=== PATIENT | female | born 1985 | race Caucasian/White ===

== ENCOUNTER 2019-01-15 13:22 | Emergency (ER) | payer OTHER ==
[2019-01-15] MEDS ORDERED: ONDANSETRON HCL INJ/PF 4 MG/2 ML SDV IV ONE ×2 (14:10→18:26)
[2019-01-15] MEDS ORDERED: NORMAL SALINE 1000 ML 1,000 ML IV ONE (14:10)
[2019-01-15] MEDS ORDERED: KETOROLAC TROMETHAMINE INJ/PF 30 MG/1 ML SDV IV ONE (14:12)
--- NOTE | 2019-01-15 14:12 | ER Document Report ---
ED Medical Screen (RME) - General Chief Complaint: Upper Abdominal Pain Stated Complaint: NAUSEA,VOMITIN,DIARRHEA Time Seen by Provider: 01/15/19 14:08 Mode of Arrival: Ambulatory Information source: Patient Notes: 33-year-old female presented to ED for nausea vomiting and diarrhea for months with right upper quadrant pain for months. She states the nausea vomiting diarrhea and pain are all worse starting yesterday. She does have a history of gastric sleeve at which time mother told the surgeon if the gallbladder was bad to please take it out. He states it was okay at that time. She states she is been to the doctor several times since his nausea vomiting diarrhea and up quadrant pain started and they told her to stop drinking and take her antidepressants and it would go away. She states she does drink 2 beers a day during the week and more than that on the weekend. She uses vapor cigarettes and does not do drugs. Patient is alert oriented respirations regular and unlabored does have a very significant tenderness to the right upper quadrant. I have greeted and performed a rapid initial assessment of this patient. A comprehensive ED assessment and evaluation of the patient, analysis of test results and completion of medical decision making process will be conducted by an additional ED providers. Dictation of this chart was performed using voice recognition software; therefore, there may be some unintended grammatical errors. TRAVEL OUTSIDE OF THE [place] IN LAST 30 DAYS: No - Related Data Allergies/Adverse Reactions: No Known Allergies Allergy (Verified 01/15/19 13:25) Physical Exam - Vital signs Vitals: Temp Pulse Resp BP Pulse Ox 98.2 F 90 24 H 147/118 H 99 01/15/19 13:36 01/15/19 13:36 01/15/19 13:36 01/15/19 13:36 01/15/19 13:36 Course - Vital Signs Vital signs: Temp Pulse Resp BP Pulse Ox 98.2 F 90 24 H 147/118 H 99 01/15/19 13:36 01/15/19 13:36 01/15/19 13:36 01/15/19 13:36 01/15/19 13:36
[2019-01-15 15:10] LABS: ABSOLUTE LYMPHOCYTES (AUTO) 1.1 10^3/uL (0.5-4.7); ABSOLUTE MONOCYTES (AUTO) 0.4 10^3/uL (0.1-1.4); ABSOLUTE NEUT (AUTO) 2.7 10^3/uL (1.7-8.2); BASOPHILS % (AUTO) 1.1 % (0-2); EOSINOPHILS % (AUTO) 0.1 % (0-6); HEMATOCRIT 41.8 % (36.0-47.0); HEMOGLOBIN 14.1 g/dL (12.0-15.5); LYMPHOCYTES % (AUTO) 26.5 % (13-45); MEAN CORPUSCULAR HGB CONC 33.9 g/dL (32.0-36.0); MEAN CORPUSCULAR VOLUME 103 fl (80-97); MONOCYTES % (AUTO) 9.3 % (3-13); PLATELET COUNT 228 10^3/uL (150-450); RED BLOOD COUNT 4.04 10^6/uL (3.72-5.28); RED CELL DISTRIBUTION WIDTH 16.8 % (11.5-14.0); TOTAL CELLS COUNTED % (AUTO) 100 %; WHITE BLOOD COUNT 4.3 10^3/uL (4.0-10.5)
[2019-01-15 15:21] LABS: APPEARANCE,URINE SLIGHTLY-CLOUDY; BILIRUBIN,URINE NEGATIVE (NEGATIVE); COLOR,URINE YELLOW; GLUCOSE, URINE 50 mg/dL (NEGATIVE); KETONES,URINE NEGATIVE (NEGATIVE); LEUKOCYTE ESTERASE,URINE NEGATIVE (NEGATIVE); NITRITE,URINE NEGATIVE (NEGATIVE); PROTEIN,URINE NEGATIVE (NEGATIVE); URINE SPECIFIC GRAVITY 1.026; UROBILINOGEN,URINE NEGATIVE mg/dL (<2.0)
[2019-01-15] MEDS ORDERED: FENTANYL CITRATE INJ/PF 100 MCG/2 ML AMPUL IV ONE (15:44)
[2019-01-15 16:44] LABS: ALANINE AMINOTRANSFERASE 52 U/L (9-52); ALBUMIN 3.1 g/dL (3.5-5.0); ALKALINE PHOSPHATASE 98 U/L (38-126); ANION GAP 10 (5-19); ASPARTATE AMINO TRANSFERASE 68 U/L (14-36); BILIRUBIN,DIRECT 0.2 mg/dL (0.0-0.4); BILIRUBIN,TOTAL 0.7 mg/dL (0.2-1.3); BLOOD UREA NITROGEN 7 mg/dL (7-20); CALCIUM 7.5 mg/dL (8.4-10.2); CARBON DIOXIDE 21 mmol/L (22-30); CHLORIDE 107 mmol/L (98-107); GLUCOSE 88 mg/dL (75-110); POTASSIUM 3.7 mmol/L (3.6-5.0); SODIUM 138.4 mmol/L (137-145); TOTAL PROTEIN 5.9 g/dL (6.3-8.2)
--- NOTE | 2019-01-15 16:53 | RADIOLOGY REPORT (SQ) ---
EXAM DESCRIPTION: U/S ABDOMEN LIMITED W/O DOP COMPLETED DATE/TIME: 01/15/2019 4:09 pm REASON FOR STUDY: ruq abdominal pain through to back nvd COMPARISON: None. TECHNIQUE: Dynamic and static grayscale images acquired of the abdomen and recorded on PACS. Stefanio anselmo selected color Doppler and spectral images recorded. LIMITATIONS: None. FINDINGS: PANCREAS: No masses. Visualized pancreatic duct normal caliber. LIVER: Normal size Mild fatty infiltration. No focal masses. LIVER VASCULATURE: Normal directional flow of the main portal vein and hepatic veins. GALLBLADDER: Gallstone(s). No pericholecystic fluid. No wall thickening. ULTRASOUND-DETECTED FRIAS'S SIGN: Positive. INTRAHEPATIC DUCTS AND COMMON DUCT: CBD and intrahepatic ducts normal caliber. No filling defects. INFERIOR VENA CAVA: Normal flow. AORTA: No aneurysm. RIGHT KIDNEY: Normal size. Normal echogenicity. No solid or suspicious masses. No hydronephros is. No calcifications. PERITONEAL AND RIGHT PLEURAL SPACE: No ascites or effusions. OTHER: No other significant findings. IMPRESSION: Cholelithiasis. Positive Frias's sign. TECHNICAL DOCUMENTATION: JOB ID: [id number] [employer]- All Rights Reserved Reading location - IP/workstation name: [email or web address]
[2019-01-15 17:20] LABS: LIPASE 67.5 U/L (23-300)
--- NOTE | 2019-01-15 18:59 | ER Document Report ---
ED General - General Chief Complaint: Upper Abdominal Pain Stated Complaint: NAUSEA,VOMITIN,DIARRHEA Time Seen by Provider: 01/15/19 14:08 Primary Care Provider: MANUEL ZAVALA MD [ACTIVE STAFF] - Follow up as needed Mode of Arrival: Ambulatory Notes: Patient is a 33-year-old female presents to the emergency department for right upper quadrant pain that started today. Patient states she is on multiple episodes of vomiting as well as diarrhea. She is denying any blood in either. Patient's denying any fevers. Patient states she did have a gastric surgery sleeve multiple years ago. P atient is denying dysuria or vaginal discharge. Past medical history: depression Medications: Clonazepam Allergies: None TRAVEL OUTSIDE OF THE [place] IN LAST 30 DAYS: No - Related Data Allergies/Adverse Reactions: No Known Allergies Allergy (Verified 01/15/19 13:25) Past Medical History - General Information source: Patient - Social History Smoking Status: Current Some Day Smoker Chew tobacco use (# tins/day): No Frequency of alcohol use: Heavy Drug Abuse: None Family History: Reviewed & Not Pertinent Patient has suicidal ideation: No Patient has homicidal ideation: No Renal/ Medical History: Denies: Hx Peritoneal Dialysis Psychiatric Medical History: Reports: Hx Depression Review of Systems - Review of Systems Constitutional: denies: Fever EENT: No symptoms reported Cardiovascular: No symptoms reported Respiratory: No symptoms reported Gastrointestinal: See HPI Genitourinary: See HPI Female Genitourinary: See HPI Musculoskeletal: No symptoms reported Skin: No symptoms reported Hematologic/Lymphatic: No symptoms reported Neurological/Psychological: No symptoms reported Physical Exam - Vital signs Vitals: Temp Pulse Resp BP Pulse Ox 98.2 F 90 24 H 147/118 H 99 01/15/19 13:36 01/15/19 13:36 01/15/19 13:36 01/15/19 13:36 01/15/19 13:36 - Notes Notes: GENERAL: Alert, interacts well. No acute distress. HEAD: Normocephalic, atraumatic. EYES: Pupils equal, round, and reactive to light. Extraocular movements intact. ENT: Oral mucosa moist, tongue midline. [Nares patent, no nasal septal hematoma, TM's intact.] NECK: Full range of motion. Supple. Trachea midline. LUNGS: Clear to auscultation bilaterally, no wheezes, rales, or rhonchi. No respiratory distress. HEART: Regular rate and rhythm. No murmur ABDOMEN: Soft, Non-distended. Bowel sounds present in all 4 quadrants. Positive Frias sign, no McBurney's point tenderness. EXTREMITIES: Moves all 4 extremities spontaneously. No edema, normal radial and dorsalis pedis pulses bilaterally. No cyanosis. BACK: no cervical, thoracic, lumbar midline tenderness. No saddle anesthesia, normal distal neurovascular exam. No CVA tenderness noted bilaterally NEUROLOGICAL: Alert and oriented x3. Normal speech. cranial nerves II through XII grossly intact PSYCH: Normal affect, normal mood. SKIN: Warm, dry, normal turgor. No rashes or lesions noted. Course - Re-evaluation Re-evalutation: 01/15/19 18:15 I discussed this case with surgeon Dr. Mix he is requesting a CAT scan. He states he does not think it is the patient's gallbladder and he would like CAT scan imaging. CT ordered. Patient alerts nursing staff to my attention. Patient states she is uncomfortable with Dr. Guerrero evaluation and his bedside manner. States even if she were to have her gallbladder out tonight she would not want it to be from him. Patient states her pain is overall a lot better. She is sitting on the side of the bed in no obvious distress. Has had no further episodes of vomiting and wishes to follow-up with her primary care provider. Patient's labs show no signs of leukocytosis, ultrasound shows no signs of cholecystitis. I feel confident that patient can follow-up outpatient. I have discussed close return precautions with her as far as signs and symptoms of infection and cholecystitis. Patient states she has an appointment with her primary care provider this week. States she will return to the emergency room as needed. Patient agreeable with plan and continues to voice her appreciation that she does not have to stay in the emergency department or be evaluated by Dr. Mix again. Repeat abdominal exam reveals very minimal right upper quadrant pain. Patient states she really does feel better and has no further episodes of vomiting. Patient stable for discharge. - Vital Signs Vital signs: Temp Pulse Resp BP Pulse Ox 98.6 F 70 17 149/89 H 99 01/15/19 18:31 01/15/19 18:31 01/15/19 18:31 01/15/19 18:31 01/15/19 18:31 - Laboratory Result Diagrams: 01/15/19 14:38 01/15/19 15:37 Laboratory results interpreted by me: 01/15/19 01/15/19 01/15/19 14:38 14:38 15:37 MCV 103 H MCH 35.0 H RDW 16.8 H Carbon Dioxide 21 L Calcium 7.5 L AST 68 H Total Protein 5.9 L Albumin 3.1 L Urine Glucose (UA) 50 H Urine Blood SMALL H Discharge - Discharge Clinical Impression: Cholelithiasis Qualifiers: Cholelithiasis location: gallbladder Cholecystitis presence: without cholecystitis Biliary obstruction: without biliary obstruction Qualified Code(s): K80.20 - Calculus of gallbladder without cholecystitis without obstruction Condition: Stable Disposition: HOME, SELF-CARE Instructions: Gallbladder Disease ([facility]) Additional Instructions: As we discussed you have been seen and treated in the emergency department for your right upper quadrant pain. At this point time your images show you do have gallstones. It also shows that there is no signs of infection. Your labs also reveal no signs of acute abnormalities. At this point in time removing your gallbladder would be an elective course. I have provided phone numbers for surgeon please also follow-up with your primary care provider or return to the emergency room for any concerns. Prescriptions: Hydrocodone/Acetaminophen [[place]ne 10-325 mg Tablet] 1 tab PO Q6 PRN #15 tablet PRN Reason: Ondansetron [Zofran Odt 4 mg Tablet] 2 tab PO Q6 PRN #20 tab.rapdis PRN Reason: For Nausea/Vomiting Forms: Return to Work Referrals: MANUEL ZAVALA MD [ACTIVE STAFF] - Follow up as needed
[2019-01-15] MEDS ORDERED: ONDANSETRON ODT 4 MG TAB (6 TAB/ER DISP) PO PRN (19:05)
[2019-01-15] MEDS ORDERED: HYDROCODONE/ACETAMINOPHEN 5-325 MG (6 TAB/ER DISP) PO PRN (19:05)
[2019-01-15 19:09] VITALS: BP 148/90
--- NOTE | 2019-01-15 19:15 | RADIOLOGY REPORT (SQ) ---
EXAM DESCRIPTION: CT ABD/PELVIS NO ORAL OR IV COMPLETED DATE/TIME: 01/15/2019 6:52 pm REASON FOR STUDY: RUQ pain COMPARISON: None TECHNIQUE: CT scan of the abdomen and pelvis performed without intravenous or oral contrast. Images reviewed with lung, soft tissue, and bone windows. Reconstructed coronal and sagittal MPR images revi ewed. All images stored on PACS. All CT scanners at this facility use dose modulation, iterative reconstruction, and/or weight based d osing when appropriate to reduce radiation dose to as low as reasonably achievable (ALARA). [facility]: Dose Right [facility]: CareDose [facility]: Dose Right [facility]: Teradose 4D [facility]: Smart [email or web address] RADIATION DOSE: CT Rad equipment meets quality standard of care and radiation dose reduction techniq ues were employed. CTDIvol: 13.1 mGy. DLP: 739 mGy-cm.mGy. LIMITATIONS: None. FINDINGS: LOWER CHEST: No significant findings. No nodules or infiltrates. NON-CONTRASTED LIVER, SPLEEN, ADRENALS: The spleen and adrenal glands are normal. The liver is somew hat hypoattenuating. No mass. PANCREAS: No masses. No peripancreatic inflammatory changes. GALLBLADDER: No identified stones by CT criteria. No inflammatory changes to suggest cholecystitis. RIGHT KIDNEY AND URETER: No suspicious masses. Assessment limited by lack of IV contrast. No signif icant calcifications. No hydronephrosis or hydroureter. LEFT KIDNEY AND URETER: No suspicious masses. Assessment limited by lack of IV contrast. No signifi cant calcifications. No hydronephrosis or hydroureter. AORTA AND RETROPERITONEUM: No aneurysm. No retroperitoneal masses or adenopathy. BOWEL AND PERITONEAL CAVITY: No obvious masses or inflammatory changes. No free fluid. APPENDIX: Normal. PELVIS, BLADDER, AND ABDOMINAL WALL:2.8 cm and left adnexal cyst. An IUD is present in the uterus. No abnormal pelvic mass. Urinary bladder is normal. BONES: No significant findings. OTHER: No other significant finding. IMPRESSION: Small left ovarian cyst, almost certainly benign. No additional imaging is required for this. No acute finding in the abdomen or pelvis. There is hepatic steatosis. COMMENT: Quality ID # [id number]: Final reports with documentation of one or more dose reduction techniques (e.g., Automated exposure control, adjustment of the mA and/or kV according to patient size, use of iterative reconstruction technique) TECHNICAL DOCUMENTATION: JOB ID: [id number] [employer]- All Rights Reserved Reading location - IP/workstation name: [email or web address]
--- NOTE | 2019-01-16 01:05 | PDOC CONSULTATION ---
Consultation Consult Date: 01/16/19 Provider Consulted: GRECIA FLORES History of Present Illness Admission Date/PCP: LOBITO DUBOIS PA-C Patient complains of: Abdominal pain History of Present Illness: STAN CARROLL is a 33 year old female presenting with several week history of nausea and vomiting as well as multiple episodes of diarrhea. Patient notes that she has 8-10 bowel movements a day, perhaps more. This has been going on for several weeks. She has had intermittent nausea and vomiting as well. She noted that her emesis became more bilious recently and she also developed right- sided abdominal pain. No fever. She has had a gastric sleeve procedure several years ago with good weight loss. She notes that she does have emesis when she overeats. No history of jaundice. Past Medical History Psychiatric Medical History: Reports: Depression Social History Smoking Status: Current Some Day Smoker Family History Family History: Reviewed & Not Pertinent Parental Family History Reviewed: No Children Family History Reviewed: No Sibling(s) Family History Reviewed.: No Medication/Allergy Home Medications: Hydrocodone/Acetaminophen [[place] 10-325 mg Tablet] 1 tab PO Q6 PRN #15 tablet 01/15/19 Ondansetron [Zofran Odt 4 mg Tablet] 2 tab PO Q6 PRN #20 tab.rapdis 01/15/19 Allergies/Adverse Reactions: No Known Allergies Allergy (Verified 01/15/19 13:25) Physical Exam Vital Signs: Temp Pulse Resp BP Pulse Ox 98.5 F 77 16 148/90 H 98 01/15/19 19:08 01/15/19 19:08 01/15/19 19:08 01/15/19 19:08 01/15/19 19:08 Intake & Output 01/14/19 01/15/19 01/16/19 06:59 06:59 06:59 Intake Total 1000 Balance 1000 Weight 82.2 kg General appearance: PRESENT: no acute distress, cooperative Respiratory exam: PRESENT: clear to auscultation cyndi Cardiovascular exam: PRESENT: RRR GI/Abdominal exam: PRESENT: other - Soft, nondistended, right mid abdominal tenderness without peritoneal signs. Some right upper abdominal tenderness as well but less than her right mid abdomen. No palpable masses Neurological exam: PRESENT: alert, awake Psychiatric exam: PRESENT: appropriate affect Skin exam: PRESENT: warm Results Laboratory Results: 01/15/19 14:38 01/15/19 15:37 01/15/19 01/15/19 01/15/19 14:38 14:38 14:38 WBC 4.3 RBC 4.04 Hgb 14.1 Hct 41.8 MCV 103 H MCH 35.0 H MCHC 33.9 RDW 16.8 H Plt Count 228 Seg Neutrophils % 63.0 Lymphocytes % 26.5 Monocytes % 9.3 Eosinophils % 0.1 Basophils % 1.1 Absolute Neutrophils 2.7 Absolute Lymphocytes 1.1 Absolute Monocytes 0.4 Absolute Eosinophils 0.0 Absolute Basophils 0.0 Sodium Cancelled Potassium Cancelled Chloride Cancelled Carbon Dioxide Cancelled Anion Gap Cancelled BUN Cancelled Creatinine Cancelled Est GFR ( Amer) Cancelled Est GFR (Non-Af Amer) Cancelled Glucose Cancelled Calcium Cancelled Total Bilirubin Cancelled AST Cancelled ALT Cancelled Alkaline Phosphatase Cancelled Total Protein Cancelled Albumin Cancelled Amylase Cancelled Lipase Cancelled Serum HCG, Qual NEGATIVE Urine Color Urine Appearance Urine pH Ur Specific Ada Urine Protein Urine Glucose (UA) Urine Ketones Urine Blood Urine Nitrite Ur Leukocyte Esterase Urine WBC (Auto) Urine RBC (Auto) 01/15/19 01/15/19 14:38 15:37 WBC RBC Hgb Hct MCV MCH MCHC RDW Plt Count Seg Neutrophils % Lymphocytes % Monocytes % Eosinophils % Basophils % Absolute Neutrophils Absolute Lymphocytes Absolute Monocytes Absolute Eosinophils Absolute Basophils Sodium 138.4 Potassium 3.7 Chloride 107 Carbon Dioxide 21 L Anion Gap 10 BUN 7 Creatinine 0.60 Est GFR ( Amer) > 60 Est GFR (Non-Af Amer) > 60 Glucose 88 Calcium 7.5 L Total Bilirubin 0.7 AST 68 H ALT 52 Alkaline Phosphatase 98 Total Protein 5.9 L Albumin 3.1 L Amylase Lipase 67.5 Serum HCG, Qual Urine Color YELLOW Urine Appearance SLIGHTLY-CLOUDY Urine pH 5.0 Ur Specific Ada 1.026 Urine Protein NEGATIVE Urine Glucose (UA) 50 H Urine Ketones NEGATIVE Urine Blood SMALL H Urine Nitrite NEGATIVE Ur Leukocyte Esterase NEGATIVE Urine WBC (Auto) 1 Urine RBC (Auto) 2 Impressions: Abdomen Ultrasound 01/15/19 14:09 IMPRESSION: Cholelithiasis. Positive Frias's sign. Abdomen/Pelvis CT 01/15/19 18:26 IMPRESSION: Small left ovarian cyst, almost certainly benign. No additional imaging is required for this. No acute finding in the abdomen or pelvis. There is hepatic steatosis. Assessment & Plan - Diagnosis (1) Cholelithiasis Qualifiers: Cholelithiasis location: gallbladder Cholecystitis presence: without cholecystitis Biliary obstruction: without biliary obstruction Qualified Code(s): K80.20 - Calculus of gallbladder without cholecystitis without obstruction Is this a current diagnosis for this admission?: Yes Plan: Patient has gallstones by ultrasound and the tech thought that she had a sonographic Frias sign though she had no pericholecystic fluid and no gallbladder wall thickening. But her tenderness on exam appears more to be in the right mid abdomen rather than in the right upper quadrant. Her symptoms are not typical for gallstones other than right-sided pain that occurred just recently. She will need a laparoscopic cholecystectomy at some point but I do not think her gallbladder explains her symptoms. Her predominant symptom is diarrhea and nausea and vomiting, the most concerning of which was bilious emesis recently. I recommended to the ER staff a CT scan to further evaluate the patient's atypical symptoms. While I was in the operating room, the patient was discharged to home. I did not have time to fully evaluate her after the CT scan. According to the ER staff, apparently she was feeling much better and had marked improvement of her tenderness and she was felt to be safe to discharge to home with follow-up with her primary care physician.
== END 2019-01-15 19:27 | disposition home or self-care (01) ==
LOC: ER 13:22
DX: K80.20 Calculus of gallbladder without cholecystitis without obstruction (principal); R10.10 Upper abdominal pain, unspecified; R11.10 Vomiting, unspecified; R19.7 Diarrhea, unspecified; Z98.84 Bariatric surgery status
CPT/HCPCS: 96376; 96374; 99284; 96361; 96375; 36415; 83690; 84703; 85025; 80053; 81001; 76705; 74176; J3010; J1885; J2405; J7030

== ENCOUNTER → 2019-02-07 | Outpatient (CLI) | payer OTHER ==
[2019-02-12 08:45] LABS: HELICOBACTER PYLORI IGA AB <9.0 units (0.0-8.9); HELICOBACTER PYLORI IGG AB <0.80 (0.00-0.79)
== END ==
LOC: OD 15:39
PROVIDERS: ATTEND Surgery
DX: K29.70 Gastritis, unspecified, without bleeding (principal); R10.13 Epigastric pain
CPT/HCPCS: 36415; 86677

== ENCOUNTER 2019-04-05 10:40 | Day surgery (SDC) | payer OTHER ==
[2019-04-05] MEDS ORDERED: PROPOFOL INJ 200 MG/20 ML VIAL IV ONE ×2 (14:36→15:08)
[2019-04-05] MEDS ORDERED: LIDOCAINE 2% INJ (20 MG/ML) 20 ML MDV ONE (14:37)
[2019-04-05] MEDS ORDERED: PROMETHAZINE HCL INJ 25 MG/1 ML VIAL IV PRN ×2 (14:52)
[2019-04-05] MEDS ORDERED: MEPERIDINE HCL/PF INJ 25 MG/1 ML DISP.SYRIN IV PRN (14:52)
[2019-04-05] MEDS ORDERED: DIPHENHYDRAMINE HCL 50 MG/ML VIAL IV PRN (14:52)
[2019-04-05] MEDS ORDERED: FENTANYL CITRATE INJ/PF 100 MCG/2 ML AMPUL IV PRN ×3 (14:52)
[2019-04-05 17:02] VITALS: BP 136/98
--- NOTE | 2019-04-09 21:42 | Discharge Summary ---
Discharge Summary (SDC) - Discharge Final Diagnosis: Gastritis, duodenitis, reflux esophagitis Date of Surgery: 04/09/19 Discharge Date: 04/09/19 Condition: Stable Forms: ASU Anesthesia D/C Instruction, Discharge POC-Surgical Service Treatment or Instructions: PASS GAS TO RELIEVE GAS PAINS TAKE MEDICATIONS DIRECTED BY YOUR MD ACTIVITY TOLERATED FOLLOW UP DIRECTED WITH YOUR MD IT MAY TAKE SEVERAL DAYS FOR YOUR BOWEL MOVEMENTS TO GET BACK TO NORMAL Referrals: MANUEL ZAVALA MD [ACTIVE STAFF] - 04/15/19 10:45 am Discharge Diet: As Tolerated Respiratory Treatments at Home: Deep Breathing/Coughing Discharge Activity: Balance Activity w/Rest Home Care Assistance: None Needed Report the Following to Your Physician Immediately: Shortness of Breath, Nausea, Vomiting, Increase in Pain, Fever over 101 Degrees, Unusual Bleeding, Redness, Swelling, Warmth, Increased Soreness, Drainage-Yellow, Drainage-Fitzpatrick, Drainage- Green, Drainage-Foul Smelling, Numbness, Tingling Sensation, Wheezing, Seizure, IV Site Infection Signs
--- NOTE | 2019-04-09 21:47 | Operative Report ---
Nonrecallable Operative Report DATE OF SURGERY: 04/05/19 PREOPERATIVE DIAGNOSIS: Abdominal pain, diarrhea POSTOPERATIVE DIAGNOSIS: 1. Same as above. 2. Gastritis. 3. Duodenitis. 4. Reflux esophagitis. 5. Small internal hemorrhoids. OPERATION: 1. EGD with biopsy. 2. Colonoscopy to the cecum SURGEON: MANUEL ZAVALA ANESTHESIA: LMAC TISSUE REMOVED OR ALTERED: 1. Antral biopsy. 2. Duodenal biopsy. 3. Distal esophageal biopsy COMPLICATIONS: None apparent ESTIMATED BLOOD LOSS: Minimal PROCEDURE: Procedure in detail: After informed consent was obtained, the patient was brought to the room and laid in the left lateral decubitus position. The endoscope was passed down the oropharynx, down the esophagus, and into the stomach. 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 The scope was passed through the antrum, and into the duodenum. The first portion of the duodenum appeared inflamed, however the second portion appeared normal. Biopsy was taken in the first portion of the duodenum to rule out celiac disease. Scope was pulled back into the gastric antrum where a large amount of antral gastritis was identified. Biopsy was taken in the antrum to rule out H. pylori infection. The scope was then withdrawn into the distal esophagus where reflux esophagitis was confirmed. Biopsy was taken in the distal esophagus. The scope was then withdrawn up the remainder of the esophagus. The remainder of the esophagus was smooth in contour without masses, lesions, or other abnormalities. The scope was then removed from the oropharynx, and this portion of the procedure was concluded. The colonoscope was inserted into the rectum. It was passed up the rectum, sigmoid colon, descending colon, across the transverse colon, down the ascending colon, and into the cecum. The ileocecal valve and appendiceal orifice were identified. The scope was then withdrawn, circumferentially noting the mucosa. The prep was good. The scope was withdrawn past the ascending colon, transverse colon, descending colon, sigmoid colon, and into the rectum. Retroflexion maneuver was performed in the rectum noting small, nonbleeding internal hemorrhoids. The scope was straightened, air was suctioned from the rectum, the scope was removed, and the procedure was concluded. All sponge, instrument, and needle counts were correct. Condition: Stable.
== END 2019-04-05 16:30 | disposition home or self-care (01) ==
LOC: OROUT 10:40
PROVIDERS: ATTEND Surgery
DX: K29.70 Gastritis, unspecified, without bleeding (principal); K29.80 Duodenitis without bleeding; K64.8 Other hemorrhoids; R19.7 Diarrhea, unspecified; Z79.899 Other long term (current) drug therapy
CPT/HCPCS: 43239; 45378; 81025; 88342 ×2; 88305 ×2; 00813; J3490; J2704; 813